=== PATIENT | female | born 1985 | race Caucasian/White ===

== ENCOUNTER 2020-06-28 08:12 | Emergency (ER) | payer BC, SELFPAY ==
--- NOTE | ~2020-06-28 | CT_ITS ---
EXAMINATION: CT abdomen pelvis wo con DATE: 06/28/2020 09:36 INDICATION: Flank pain TECHNIQUE: Computed tomography (CT) of the abdomen and pelvis was performed without intravenous contr ast. The dose-length product (DLP) was 580.63 mGy-cm. Automated exposure control and iterative recons truction technique were employed. COMPARISON: 01/26/2017 FINDINGS: Minimal dependent atelectasis is present in the lung bases. The heart size is normal. The l iver, spleen, pancreas, gallbladder, and adrenal glands are normal. The left kidney is unremarkable. There is a 3 mm stone in the right proximal ureter which causes mild hydronephrosis. A 4 mm nonobstru cting stone is present in the right kidney lower pole. No stones are identified in the left ureter or the bladder. The appendix is normal. No pathologically enlarged abdominal or pelvic lymph nodes are identified. There is no free intraperitoneal gas or evidence of bowel obstruction. There is a small f at-containing umbilical hernia. IMPRESSION: 1. 3 mm stone of the right proximal ureter causing mild hydronephrosis. Consider KUB for treatment pl anning purposes. 2. Nonobstructing right nephrolithiasis. Reviewed, dictated and finalized at location A. AUR[facility] BARTENDER IMPRESSION: 1. 3 mm stone of the right proximal ureter causing mild hydronephrosis. Conside r KUB for treatment planning purposes. 2. Nonobstructing right nephrolithiasis.
[2020-06-28 08:24] VITALS: BP 135/87; PULSE 84; RESP 18; TEMP 36.2; O2SAT 96
[2020-06-28 08:35] LABS: Basophils Percent Auto 0.7 % (0.2-1.2); Eosinophils Absolute Auto 0.3 K/mm3 (0-0.3); Eosinophils Percent Auto 4.9 % (0-4.4); Hemoglobin 14.7 g/dL (12.0-15.0); Immature Granulocyte Absolute 0.02 K/mm3 (0.00-0.031); Immature Granulocyte Percent A 0.3 % (0-0.5); Lymphocytes Absolute Auto 1.11 K/mm3 (0.9-3.2); Lymphocytes Percent Auto 19.4 % (18.3-44.2); Mean Corpuscular HGB Conc 34.2 g/dl (32-36); Mean Corpuscular Hemoglobin 30.9 pg (26-34); Mean Corpuscular Volume 90.3 fl (80-100); Mean Platelet Volume 9.5 fl (7.4-10.4); Monocytes Absolute Auto 0.6 K/mm3 (0.1-0.6); Monocytes Percent Auto 10.3 % (2.6-8.5); Neutrophils Absolute Auto 3.7 K/mm3 (1.3-6.7); Neutrophils Percent Auto 64.4 % (45.5-73.1); Platelet Count Result 293 k/mm3 (150-375); Red Blood Count 4.76 M/mm3 (4.2-5.4); Red Cell Distribution Width 12.6 % (11.5-14.5); White Blood Count 5.7 K/mm3 (4.5-10.0)
[2020-06-28 08:42] LABS: Add Urine Microscopic? YES; Appearance Urine Cloudy (Clear); Bacteria Urine 3+ /hpf; Bilirubin Urine Negative (Negative); Blood Urine 3+ (Negative); Color Urine Yellow (Yellow); Glucose Urine UA Negative (Negative); Ketones Urine Negative (Negative); Leukocyte Esterase Ur Negative LEU/UL (Negative); Mucus Urine Moderate /lpf; Nitrate Urine Negative (Negative); Protein Urine 1+ mg/dL (Negative); RBC Urine >75 /hpf (0-2); Specific Grav Ur 1.025 (1.001-1.035); Squamous Epithelial Cell Urine Many /hpf (Few); Urobilinogen Urine Negative mg/dL (<2.0)
[2020-06-28 08:47] LABS: Anion Gap 6 mmol/L (8-16); Blood Urea Nitrogen 13 mg/dL (7-17); Calcium 9.2 mg/dL (8.4-10.2); Carbon Dioxide 26 mmol/L (22-30); Chloride 106 mmol/L (98-107); Estimated CRCL calculation 83 ml/min; Estimated Glomerular Filt Rate > 60; Glucose 106 mg/dL (65-105); Potassium 4.1 mmol/L (3.4-5.0); Sodium 138 mmol/L (137-145)
[2020-06-28] MEDS: HYDROmorphone HCL INJ (*CRX) 1 MG/ML SYR IV PUSH (09:14)
[2020-06-28] MEDS: ONDANSETRON INJ 4 MG/2 ML VIAL IV PUSH (09:14)
[2020-06-28] MEDS: SODIUM CHLORIDE 0.9% IV 1,000 ML 999 ML IV CONT (09:15)
[2020-06-28 09:44] VITALS: TEMP 36.2
[2020-06-28] MEDS: KETOROLAC 30 MG/ML VIAL (*BKC) IV PUSH (09:54)
[2020-06-28 10:24] VITALS: TEMP 36.2
[2020-06-28 10:41] VITALS: BP 112/75; PULSE 54; RESP 18; O2SAT 96
--- NOTE | 2020-06-28 11:08 | ED.GENADULT ---
HPI - General Adult General Chief complaint: Back Pain/Injury Stated complaint: R FLANK PAIN, HX STONES Time Seen by Provider: 06/28/20 08:33 Source: patient and family Mode of arrival: ambulatory Limitations: no limitations History of Present Illness HPI narrative: 35-year-old with a history of kidney stones here with complaints of sudden onset of right flank pain started early hours, pain got intense associated with nausea and vomiting. She denies any fever or chills no history of trauma. Denies any blood in the urine. Onset (ago): hour(s) (4) Location: back (Right flank) Radiation: abdomen Severity: severe Severity scale (1-10): 8 Quality: stabbing Pain Consistency: constant Relieving factors: none Exacerbating factors: none Associated symptoms: denies other symptoms Related Data Home Medications Medication Instructions Recorded Confirmed cetirizine [Zyrtec] mg 06/28/20 cholecalciferol (vitamin D3) 06/28/20 cranberry 06/28/20 omeprazole 06/28/20 Allergies Allergy/AdvReac Type Severity Reaction Status Date / Time Penicillins Allergy Unknown Rash Verified 06/28/20 08:35 Review of Systems Review of Systems: All systems reviewed & are unremarkable except as noted in HPI and below Constitutional: Constitutional: Reports no additional constitutional complaints Eyes: Eyes: Reports no additional eye complaints ENT: Reports system reviewed and no additional complaints, except as documented Cardiovascular: Cardiovascular: Reports no additional cardiovascular complaints Respiratory: Respiratory: Reports no additional respiratory complaints Gastrointestinal: Gastrointestinal: Reports as per HPI Musculoskeletal: Musculoskeletal: Reports no additional musculoskeletal complaints Neurologic: Reports system reviewed and no additional complaints, except as documented PMFSH Social History Social History Gender identity (if verbalized by the patient): Female Exam Narrative: Exam Narrative: GENERAL: Well-appearing, well-nourished, and in moderate distresssec to pain ,actively vomiting HEAD: Normocephalic, atraumatic. EYES: PERRLA and EOM NECK: Supple. CHEST: Clear to auscultation. No respiratory distress. HEART: Regular rate and rhythm. No murmur heard. Normal peripheral pulses. ABDOMEN: Soft, nontender, nondistended, normal active bowel sounds.No CVA tenderness EXTREMITIES: Normal range of motion. No edema. SKIN: Warm, dry, no rash. NEURO: No focal deficits. Alert and oriented x3. PSYCH: Normal mood and affect. Course Course Emergency Course: With a history of kidney stones do CBC chemistry and a CT of the abdomen. Meanwhile I will give IV Dilaudid for pain and Zofran for nausea and hydrate. Vital Signs Vital signs: Vital Signs Temperature 36.2 C L 06/28/20 08:24 Pulse Rate 84 06/28/20 08:24 Respiratory Rate 18 06/28/20 08:24 Blood Pressure 135/87 06/28/20 08:24 Pulse Oximetry 96 06/28/20 08:24 Temperature 36.2 C L 06/28/20 10:24 Pulse Rate 54 L 06/28/20 10:41 Respiratory Rate 18 06/28/20 10:41 Blood Pressure 112/75 06/28/20 10:41 Pulse Oximetry 96 06/28/20 10:41 Medical Decision Making Vital Signs Vital Signs: Vital Signs Temperature 36.2 C L 06/28/20 08:24 Pulse Rate 84 06/28/20 08:24 Respiratory Rate 18 06/28/20 08:24 Blood Pressure 135/87 06/28/20 08:24 Pulse Oximetry 96 06/28/20 08:24 Temperature 36.2 C L 06/28/20 10:24 Pulse Rate 54 L 06/28/20 10:41 Respiratory Rate 18 06/28/20 10:41 Blood Pressure 112/75 06/28/20 10:41 Pulse Oximetry 96 06/28/20 10:41 Lab Data Result diagrams: 06/28/20 08:27 06/28/20 08:27 Labs: Lab Results 06/28/20 06/28/20 06/28/20 Range/Units 08:27 08:27 08:27 WBC 5.7 (4.5-10.0) K/mm3 RBC 4.76 (4.2-5.4) M/mm3 Hgb 14.7 (12.0-15.0) g/dL Hct 43.0 (37.0-47.0) % MCV 90.3 (80
[2020-06-28 11:17] VITALS: BP 116/69; PULSE 56; RESP 18; O2SAT 98
== END 2020-06-28 11:19 | disposition home or self-care (01) ==
PROVIDERS: Emergency Provider Family Medicine; PCP Family Medicine
DX: N13.2 Hydronephrosis with renal and ureteral calculous obstruction (principal); N39.0 Urinary tract infection, site not specified; Z87.442 Personal history of urinary calculi
CPT/HCPCS: 36415; 74176; 80048; 81001; 81025; 85025; 96361; 96374; 96375; 99284; J1170; J1885; J2405; J7030

== ENCOUNTER 2021-10-14 10:40 | Emergency (ER) | payer BC, SELFPAY ==
--- NOTE | ~2021-10-14 | CT_ITS ---
EXAMINATION: CT abdomen pelvis wo con DATE: 10/14/2021 12:10 INDICATION: Right flank pain TECHNIQUE: Computed tomography (CT) of the abdomen and pelvis was performed without intravenous contr ast. Automated exposure control and iterative reconstruction technique were employed. Exam dose: 297 .31 mGy-cm total exam DLP. COMPARISON: 06/28/[address] abdomen pelvis FINDINGS: There is patchy groundglass density in the lower lung zones which may indicate bilateral pu lmonary infiltrate or small airways disease. Normal heart size. No pericardial or pleural effusion. The liver, gallbladder, bile ducts, pancreas, pancreatic duct, spleen and adrenal glands are unremark able. 4.6 x 6.5 mm right proximal ureteral calculus with moderate right hydronephrosis. No other urinary tract calculus. No left hydroureteronephrosis. The urinary bladder, uterus and adnex al areas are unremarkable. Normal caliber of the abdominal aorta. No intraperitoneal or retroperitoneal or pelvic mass lesion or adenopathy or ascites. Normal appendix. No bowel obstruction, bowel wall thickening, pneumatosis or intraperitoneal free air. Included skeletal structures are unremarkable. IMPRESSION: 4.6 x 6.5 mm obstructing proximal right ureteral calculus with moderate right hydronephr osis Normal appendix Reviewed, dictated and finalized at [facility]. Reviewed, dictated and finalized at location B. IMPRESSION: 4.6 x 6.5 mm obstructing proximal right ureteral calculus with mod erate right hydronephrosis Normal appendix
--- NOTE | ~2021-10-14 | XR_ITS ---
EXAMINATION: XR abdomen/kub 1V INDICATION: Right flank pain TECHNIQUE: Supine views of the abdomen were obtained on 2 radiographs. COMPARISON: CT from today FINDINGS: There is a 5 mm stone at the right ureteropelvic junction projecting between the right L1 a nd L2 transverse processes. No additional urolithiasis is identified. The bowel gas pattern is normal . IMPRESSION: 1. 5 mm right ureteropelvic junction stone. Reviewed, dictated and finalized at location A.
[2021-10-14 10:44] VITALS: BP 132/73; PULSE 80; RESP 16; TEMP 36.1; O2SAT 96
[2021-10-14 11:05] LABS: Basophils Absolute Auto 0.1 K/mm3 (0.0-0.1); Basophils Percent Auto 0.5 % (0.2-1.2); Eosinophils Absolute Auto 0.1 K/mm3 (0-0.3); Hematocrit 42.6 % (37.0-47.0); Hemoglobin 13.9 g/dL (12.0-15.0); Immature Granulocyte Absolute 0.05 K/mm3 (0.00-0.031); Immature Granulocyte Percent A 0.4 % (0-0.5); Lymphocytes Absolute Auto 1.64 K/mm3 (0.9-3.2); Lymphocytes Percent Auto 13.5 % (18.3-44.2); Mean Corpuscular HGB Conc 32.6 g/dl (32-36); Mean Corpuscular Hemoglobin 30.3 pg (26-34); Mean Platelet Volume 9.6 fl (7.4-10.4); Monocytes Absolute Auto 0.5 K/mm3 (0.1-0.6); Monocytes Percent Auto 4.2 % (2.6-8.5); Neutrophils Absolute Auto 9.8 K/mm3 (1.3-6.7); Neutrophils Percent Auto 80.4 % (45.5-73.1); Platelet Count Result 287 k/mm3 (150-375); Red Blood Count 4.58 M/mm3 (4.2-5.4); Red Cell Distribution Width 12.9 % (11.5-14.5); White Blood Count 12.1 K/mm3 (4.5-10.0)
[2021-10-14 11:16] LABS: Alanine Aminotransferase 47 U/L (6-35); Albumin Level 4.6 g/dL (3.5-5.1); Alkaline Phosphatase 77 U/L (38-126); Anion Gap 9 mmol/L (8-16); Aspartate Amino Transferase 46 U/L (14-36); Bilirubin,Total 0.4 mg/dL (0.2-1.3); Blood Urea Nitrogen 15 mg/dL (7-17); Calcium 9.1 mg/dL (8.4-10.2); Carbon Dioxide 23 mmol/L (22-30); Chloride 104 mmol/L (98-107); Estimated CRCL calculation 84 ml/min; Estimated Glomerular Filt Rate > 60; Glucose 116 mg/dL (65-110); Potassium 3.9 mmol/L (3.4-5.0); Sodium 136 mmol/L (137-145)
[2021-10-14 11:18] LABS: Appearance Urine Cloudy (Clear); Bilirubin Urine 1+ (Negative); Blood Urine 2+ (Negative); Color Urine Yellow (Yellow); Glucose Urine UA Trace mg/dL (Negative); Ketones Urine Negative (Negative); Leukocyte Esterase Ur Negative LEU/UL (Negative); Nitrate Urine Negative (Negative); Protein Urine 1+ mg/dL (Negative); Specific Grav Ur >= 1.030 (1.001-1.035); Urobilinogen Urine 0.2 mg/dL (<2.0); pH Urine 5.5 (5.0-9.0)
[2021-10-14 11:28] LABS: Amorphous Sediment Urine Few; Bacteria Urine 2+ /hpf; Mucus Urine Heavy /lpf; RBC Urine 51-75 /hpf (0-2); Squamous Epithelial Cell Urine Many /hpf (Few); WBC Urine 51-75 /hpf
[2021-10-14 11:29] LABS: Add Urine Microscopic? YES
--- NOTE | 2021-10-14 11:50 | ED.BACK ---
HPI - Back Pain/Injury General Chief Complaint: Back Pain/Injury Stated Complaint: R. flank pain Time Seen by Provider: 10/14/21 10:56 Source: patient Mode of arrival: ambulatory Limitations: no limitations History of Present Illness HPI Narrative: 36 y/o female presents to the ER today for right flank pain that started 2 days ago. She has nausea and vomiting with it. She has a history of kidney stones and says that she feels like this is another stone. She has had multiple stones in the past. The last one was about a year ago. She has not had any fever or chills. No diarrhea. She has had some dysuria today. She says that today the pain feels like it is starting to wrap around the right abdomen. She has always passed the stones on her own. She was going to have lithotripsy once but she ended up toughing it out and passing it on her own. Related Data Home Medications Medication Instructions Recorded Confirmed cetirizine [Zyrtec] mg 06/28/20 cholecalciferol (vitamin D3) 06/28/20 cranberry 06/28/20 omeprazole 06/28/20 Allergies Allergy/AdvReac Type Severity Reaction Status Date / Time Penicillins Allergy Unknown Seizure Verified 10/14/21 11:03 Review of Systems Constitutional: Constitutional: Denies chills, Denies fatigue, Denies fever(s) and Denies weakness Eyes: Eyes: Reports no additional eye complaints ENT: Denies dysphagia, Denies dizziness, Denies epistaxis, Denies nasal congestion and Denies sore throat Cardiovascular: Cardiovascular: Denies chest pain Respiratory: Respiratory: Denies chest congestion, Denies cough, Denies dyspnea and Denies wheezing Gastrointestinal: Gastrointestinal: Reports abdominal pain, Denies diarrhea, Reports nausea and Reports vomiting Genitourinary: Genitourinary: Denies hematuria, Reports dysuria and Reports flank pain Musculoskeletal: Musculoskeletal: Denies myalgias and Denies arthralgias Integumentary/Breasts: Skin/Breast: Denies rash Neurologic: Denies headache(s) Psychiatric: Psychiatric: Denies anxiety and Denies depression Endocrine: Endocrine: Denies fatigue Hematologic/Lymphatic: Hematologic/Lymphatic: Reports no additional hematologic/lymphatic complaints Allergic/Immunologic: Allergic/Immunologic: Reports no additional allergic/immunologic complaints PMFSH Past Medical History Medical History Kidney stone Social History Social History Gender identity (if verbalized by the patient): Female Exam Const: General: healthy appearing, no acute distress and alert Orientation/consciousness: patient oriented x3 HENMT: Head: normal to inspection Eyes: Conjunctivae: conjunctivae normal Neck: Neck: normal visual inspection Chest: Chest palpation & inspection: normal inspection of the chest Resp: Effort & Inspection: normal respiratory effort Cardio: Rate: regular rate Rhythm: regular rhythm GI: GI Palp: Yes Soft to palpation and No Guarding due to palpation present (GI) Auscultation: normal bowel sounds : General: Yes no CVA tenderness Back/Spine/Pelvis: Back: CVA tenderness (right) Skin: General skin exam: normal color Rashes: no rashes Neuro: General: patient oriented x3 and moves all extremities Extrem: General: normal to inspection and no edema Psych: Mental Status: mental status grossly normal Affect: normal affect Attitude: cooperative Course Course Emergency Course: 1400 Discussed with ANDRAE Garcia with urology. She is finishing up in clinic and she will come to see the patient to discuss options for management. She would like patient to have KUB. 1530 Urology has stopped by to see patient. Pt does not want to have stent placed and would like to be discharged home with pain med and nausea med. She will follow up with urology outpatient for possible lithotripsy in a week. Vital Signs Vital signs: Vital Si
[2021-10-14] MEDS: SODIUM CHLORIDE 0.9% IV 1,000 ML 999 ML IV CONT (12:00)
[2021-10-14] MEDS: KETOROLAC 30 MG/ML VIAL (*BKC) IV PUSH (12:01)
[2021-10-14] MEDS: ONDANSETRON INJ 4 MG/2 ML VIAL IV PUSH (12:01)
[2021-10-14] MEDS: PROMETHAZINE HCL 25 MG/ML AMPUL 12.5 MG IV PUSH (13:09)
[2021-10-14] MEDS: MORPHINE SULFATE (*CRX) 2 MG/ML INJ IV PUSH (14:40)
[2021-10-14 14:43] VITALS: BP 115/49; PULSE 57; RESP 18; O2SAT 99
--- NOTE | 2021-10-14 15:53 | WPDURCON ---
Assessment and Plan Assessment and plan (1) UTI (urinary tract infection): Qualifiers: Hematuria presence: with hematuria Urinary tract infection type: acute cystitis Qualified Code(s): N30.01 - Acute cystitis with hematuria Code(s): N39.0 - Urinary tract infection, site not specified Status: Acute Assessment and Plan: Plan to start patient on Bactrim DS BID x 7 days, will tailor to culture results. URine culture is pending. (2) Ureteral obstruction, right: Code(s): N13.5 - Crossing vessel and stricture of ureter without hydronephrosis Status: Acute Assessment and Plan: KUB shows right UPJ stone, we discussed doing a stent today followed by a lithotripsy next week d/t receiving Torodol today, or discharging home with oral narcotics, Phenergan and antibiotics then doing just the lithotripsy next week. She agrees to go home today with narcotics, Phenergan and Bactrim, then f/u next week for outpatient lithotripsy on TuesdayOctober 23 at [place]. We will call her to schedule the procedure and she can call if any changes or concerns occur. She is aware she will need to avoid NSAID's until her procedure. Ok to discharge home. Urology Consult Note HPI Date Seen: 10/14/21 Primary Care Provider: [facility] PHYSICIAN Consult Narrative Narrative: Joanie Bryant is a 36 year old female who presented to the ER today with acute onset of right flank pain that radiates to the RLQ, accompanied by nausea and vomiting. She denies hematuria or fever. She also states her urine is cloudy with sediment and she has dysuria after urinating. Her symptoms began last night and progressively worsened. She has a history of kidney stones and was seen by Dr. Kennedy in 2017, but has passed all of her stones and has not had to have a ureteroscopy or lithotripsy thus far. She denies a history of a chronic UTI. She is afebrile at this time and has a slightly elevated WBC of 12.1, UA is suspicious for a UTI, urine culture is pending. CT shows a 4.5x 6.5mm stone in the proximal right ureter and mild right hydronephrosis. She has no other stones visible. KUB shows her stone in the right UPJ. Review of Systems Cardiovascular: Cardiovascular: Denies chest pain Respiratory: Respiratory: Reports no additional respiratory complaints Gastrointestinal: Gastrointestinal: Reports abdominal pain, Reports nausea and Reports vomiting Genitourinary: Genitourinary: Denies hematuria, Denies nocturia, Reports dysuria, Reports flank pain, Denies urinary incontinence, Denies urinary hesitancy and Denies urinary urgency PMF Past Medical History Medical History Kidney stone Social History Social History Gender identity (if verbalized by the patient): Female Meds Home Medications and Allergies Home Medications Medication Instructions Recorded Confirmed Type cetirizine [Zyrtec] mg 06/28/20 History cholecalciferol (vitamin D3) 06/28/20 History ciprofloxacin HCl [Cipro] 500 mg PO Q12H #10 tablet 06/28/20 Rx cranberry 06/28/20 History hydrocodone-acetaminophen [[place]] 1 tablet PO Q6H PRN #14 tablet 06/28/20 Rx omeprazole 06/28/20 History ondansetron HCl [Zofran] 4 mg PO Q8H PRN #10 tablet 06/28/20 Rx tamsulosin [Flomax] 0.4 mg PO HS #7 cap 06/28/20 Rx hydrocodone-acetaminophen 1 tablet PO Q4H PRN #20 tablet 10/14/21 Rx promethazine 25 mg PO Q6H PRN #14 tablet 10/14/21 Rx sulfamethoxazole-trimethoprim 1 tablet PO Q12H 7 Days #14 tablet 10/14/21 Rx [Bactrim DS] tamsulosin [Flomax] 0.4 mg PO DAILY #14 cap 10/14/21 Rx Allergies Allergy/AdvReac Type Severity Reaction Status Date / Time Penicillins Allergy Unknown Seizure Verified 10/14/21 11:03 Vital Signs Vital Signs - 24 hr 10/14/21 10:44 10/14/21 14:43 Temperature 96.9 F L Pulse Rate 80 57 L Respiratory Rate 16 18 Blood Pressu
== END 2021-10-14 16:06 | disposition home or self-care (01) ==
PROVIDERS: Emergency Medicine; Emergency Provider Nurse Practitioner Family
DX: N30.01 Acute cystitis with hematuria (principal); N13.1 Hydronephrosis with ureteral stricture, not elsewhere classified; N20.1 Calculus of ureter; Z87.442 Personal history of urinary calculi
CPT/HCPCS: 36415; 74018; 74176; 80053; 81001; 81025; 85025; 87086; 96361; 96365; 96375; 99284; J0696; J1885; J2270; J2405; J2550; J7030

== ENCOUNTER 2021-10-19 15:24 | Outpatient (CLI) | payer BC, SELFPAY ==
[2021-10-19 15:46] LABS: Partial Thromboplastin Time 26.9 SECONDS (22.3-36.8); Prothrombin Time 12.7 Seconds (11.1-14.7)
== END 2021-10-19 15:25 | disposition home or self-care (01) ==
LOC: ANHLAB 15:25
PROVIDERS: Visit Provider Urology
DX: N20.1 Calculus of ureter (principal)
CPT/HCPCS: 36415; 85610; 85730

== ENCOUNTER 2021-10-23 01:16 | Day surgery (SDC) | payer BC, SELFPAY ==
[2021-10-19 14:36] VITALS: BMI 28.3
--- NOTE | 2021-10-19 15:09 | PC.NURSE ---
Report to the Outpatient Waiting Room, entrance under the green pavilion located off [facility], at 1130 on 10-23-21. OR Time: 1330. - You and your visitor will be asked a series of questions to screen for COVID 19 for your protection. - Only one visitor is allowed at this time. - The patient visitor is requested to leave or wait in car when not with patient. - A mask is required within the hospital. Patients may have clear liquids (water, carbonated beverages, clear teas, apple juice) until 3 hours prior to surgery with a maximum of 20 ounces. 1030 - No food from midnight until time of surgery - Infants may have breast milk until 4 hours before surgery, infant formula 6 hours prior to surgery. - Children will be allowed to drink immediately following surgery. If applicable, please bring a bottle or sippy cup to assist with drinking. Juice, water, soda, and popsicles are readily available. For infants on formula, please bring formula the day of surgery. Pacifiers are allowed. Take the following medications with a SIP of water the morning of surgery: Flomax, [place], Bactrim, promethazine (all if needed) Medications to discontinue per physician: N/A Please no make-up, nail luxembourgish, hairspray, perfume, deodorant, or body powder the day of surgery. No jewelry (including any body piercings) or valuables the day of surgery, leave them at home. Please take a shower or bath the night before, or the morning of, surgery with an antibacterial soap. Wear comfortable, loose fitting clothing. Children are encouraged to wear pajamas. - Jewelry must be removed prior to entering the operating room. Rings and piercings that are not removed may be cut off. - The hospital will not accept responsibility for valuables. - Please leave all valuables, including medications, at home the day of surgery. If you are going home after surgery, a licensed personal driver must drive you home. - NO public transportation without another adult. - We recommend that an adult stay with you for 24 hours following discharge. - We also recommend that you do not drive, make important decision, drink alcoholic beverages, or take any drugs that were not prescribed by your health care provider for at least 24 hours after your discharge time. For Pediatric surgeries, we recommend two adults accompany the child home (only one inside the building at this time). Follow any additional instructions given to you from your surgeon. If you or anyone in your household have experienced Covid symptoms in the past week, please notify your surgeon or the nurse liaison at the phone number below for possible testing. Telephone instructions given to Joanie Parker and asked if any additional questions and then verbalized understanding. Patient advised to call surgeon office or pre surgery nurse liaison [phone] if any additional questions.
--- NOTE | 2021-10-22 13:40 | WPDANESEPPF ---
Anes - Initial Pre Proc Eval Procedure: Operation Date: 10/23/21 09:30 Proposed Procedures p Right Extracorporeal Shock Wave Lithotripsy - Abel Leavitt MD Date/Time: 10/22/21 13:40 Surgeon: Abel Leavitt MD Pre Op Diagnosis: Rt Ureteral Stone Patient Data Age: 36 Gender: F Height: 1.63 m Weight: 74.84 kg Allergies Allergy/AdvReac Type Severity Reaction Status Date / Time Penicillins Allergy Severe Seizure Verified 10/19/21 14:23 clindamycin Allergy Intermediate Rash Verified 10/19/21 14:23 strawberry Allergy Intermediate Rash Verified 10/22/21 13:43 Home Medications Medication Instructions Recorded Confirmed Type cetirizine [Zyrtec] 10 mg PO DAILY PRN 06/28/20 10/19/21 History hydrocodone-acetaminophen 1 tablet PO Q4H PRN #20 tablet 10/14/21 10/19/21 Rx promethazine 25 mg PO Q6H PRN #14 tablet 10/14/21 10/19/21 Rx sulfamethoxazole-trimethoprim 1 tablet PO Q12H 7 Days #14 tablet 10/14/21 10/19/21 Rx [Bactrim DS] tamsulosin [Flomax] 0.4 mg PO DAILY #14 cap 10/14/21 10/19/21 Rx omeprazole 20 mg PO DAILY 10/19/21 10/19/21 History Patient hx anesthesia problems: none Family hx anesthesia problems: none Results Review: All pre-operative results and documents have been reviewed as part of the pre-operative evaluation. [facility] Past Medical History Medical History Chronic GERD Kidney stone Seizure Social History Social History Second hand tobacco smoke exposure: No Alcohol intake: current Drinks per week: 1 Substance use: never Substance use type: does not use Living arrangements: with family Gender identity (if verbalized by the patient): Female Spiritual care concerns: No Anes - Eval Final PreProcedure Day of Procedure 10/22/21 13:40 Patient weight: overweight Heart: regular rate and rhythm Lungs: clear to auscultation and normal air movement Airway: Mallampati scale class II Neurological: alert and oriented Last oral intake: >/= 8 hours ASA classification: II Emergent: no Anesthetic plan: proceed Anesthesia type and monitoring: general LMA Results Review: All pre-operative results and documents have been reviewed as part of the pre-operative evaluation. Informed Consent: The patient's anesthetic plan and its attendant risks and benefits were discussed with the patient/family/POA. Questions were solicited and answers provided to the satisfaction of the patient/family/POA.
[2021-10-23] VITALS (7 sets, daily range): BP systolic 107–133; BP diastolic 60–79; PULSE 54–81; RESP 12–16; TEMP 36.2; O2SAT 95–100
--- NOTE | ~2021-10-23 | XR_ITS ---
XR abdomen/kub 1V 10/23/2021 07:50 Indication: Preop ESWL Procedure: KUB Comparison: 10/14/2021 Findings: There is a stone in the right upper abdomen, most likely at the right UPJ measuring approxi mately 5 mm. Bowel gas pattern is nonobstructive. No acute osseous abnormality. Lung bases unremarkab le. Impression: 1: Right UPJ stone measuring 5 mm. Reviewed, dictated and finalized at location D. Impression: 1: Right UPJ stone measuring 5 mm.
--- NOTE | 2021-10-23 06:54 | PM.HPGS ---
History of Present Illness History of Present Illness Consent: Risks, benefits, and alternatives have been discussed and questions answered. Patient agrees to proceed with procedure. Chief complaint: Rt Ureteral Stone Narrative: Joanie Bryant is a 36 year old female who has spontaneously passed ureteral stones in the remote past. She was in the ER a few days ago with a painful obstructing 5 mm right proximal ureteral stone. She does some nausea but no vomiting. She denied fever chills or gross hematuria. After discussion of options she elected for outpatient ESWL. She is aware the risk including, but not limited to, adverse cardiopulmonary events, perinephric hematoma, renal injury, fragments of will cause pain passing. Review of Systems Cardiovascular: Cardiovascular: Denies chest pain, Denies lightheadedness, Denies palpitations and Denies dyspnea Respiratory: Respiratory: Denies dyspnea Gastrointestinal: Gastrointestinal: Denies diarrhea, Denies nausea and Denies vomiting Genitourinary: Genitourinary: Denies hematuria and Denies dysuria Endocrine: Endocrine: Denies palpitations COUNTS INCLUDE 234 BEDS AT THE [facility] Past Medical History Medical History Chronic GERD Kidney stone Seizure Social History Social History Second hand tobacco smoke exposure: No Alcohol intake: current Drinks per week: 1 Substance use: never Substance use type: does not use Living arrangements: with family Gender identity (if verbalized by the patient): Female Spiritual care concerns: No Meds Home Medications and Allergies Home Medications Medication Instructions Recorded Confirmed Type cetirizine [Zyrtec] 10 mg PO DAILY PRN 06/28/20 10/19/21 History hydrocodone-acetaminophen 1 tablet PO Q4H PRN #20 tablet 10/14/21 10/19/21 Rx promethazine 25 mg PO Q6H PRN #14 tablet 10/14/21 10/19/21 Rx sulfamethoxazole-trimethoprim 1 tablet PO Q12H 7 Days #14 tablet 10/14/21 10/19/21 Rx [Bactrim DS] tamsulosin [Flomax] 0.4 mg PO DAILY #14 cap 10/14/21 10/19/21 Rx omeprazole 20 mg PO DAILY 10/19/21 10/19/21 History Allergies Allergy/AdvReac Type Severity Reaction Status Date / Time Penicillins Allergy Severe Seizure Verified 10/19/21 14:23 clindamycin Allergy Intermediate Rash Verified 10/19/21 14:23 strawberry Allergy Intermediate Rash Verified 10/22/21 13:43 Exam Const: General: no acute distress Resp: Effort & Inspection: normal respiratory effort GI: Inspection: non-distended GI Palp: No abdominal tenderness and No Guarding due to palpation present (GI) Auscultation: normal bowel sounds Assessment and Plan Assessment and plan (1) Obstruction of right ureteropelvic junction (UPJ) due to stone: Code(s): N20.1 - Calculus of ureter Status: Acute Assessment and Plan: Right ESWL
--- NOTE | 2021-10-23 06:56 | WPDHPUPDATE1 ---
History and Physical Update Update Date/Time: 10/23/21 06:56 History and Physical has been reviewed, including an updated exam of the patient. There are NO changes in the patient's condition. Risks, benefits, and alternatives have been discussed and questions answered. Patient agrees to proceed with procedure.
[2021-10-23] MEDS: LACTATED RINGERS 1,000 ML 30 ML IV CONT (08:14)
[2021-10-23] MEDS: ceFAZolin 2 GM/D5W 50 ML 2 GM/50 ML BAG IVPB (09:13)
--- NOTE | 2021-10-23 09:35 | W.PM.PROC2 ---
Procedure Note - Detailed Date of Procedure 10/23/21 Pre-op Diagnosis Rt Ureteral Stone Post-op Diagnosis Same Procedure Performed Right ESWL Surgeon Abel Leavitt MD Anesthesia General Description of Procedure The patient was brought to the operative suite where she was placed in the supine position on the Dornier lithotripsy table. The focal point of the lithotripter was placed at a 5mm right UPJ/proximal ureteal calculus. A total of 2500 shocks were delivered at a power setting of 4. There appeared to be good fragmentation of the stone. The patient tolerated the procedure well and was taken to the recovery room in good condition. Estimated Blood Loss 0 Drains No Packing No Pathology None sent Complications No immediate complications Condition Stable Disposition PACU
[2021-10-23] MEDS: fentaNYL CITRATE INJ (*CRX) 100 MCG/2 ML VIAL 25 MCG IV PUSH ×2 (10:29→10:33)
[2021-10-23] MEDS: oxyCODONE HCL (*CRX) 5 MG TAB IR PO (11:23)
== END 2021-10-23 11:35 | disposition home or self-care (01) ==
PROVIDERS: Visit Provider Urology
PROC: (CPT 50590; principal; 2021-10-23 09:30)
DX: N20.1 Calculus of ureter (principal); K21.9 Gastro-esophageal reflux disease without esophagitis
CPT/HCPCS: 50590; 74018; A9270; J0690; J2250; J2405; J2704; J3010; J7120

== ENCOUNTER 2021-11-06 14:30 | Outpatient (CLI) | payer BC, SELFPAY ==
--- NOTE | ~2021-11-06 | XR_ITS ---
EXAMINATION: XR abdomen/kub 1V INDICATION: Right ureteral stone TECHNIQUE: Supine views of the abdomen were obtained on 2 radiographs. COMPARISON: 10/23/2021 FINDINGS: The previously described right ureteropelvic junction stone is no longer evident, consisten t with interval lithotripsy. No stone fragments are identified along the expected course of the right ureter. No urolithiasis is identified. The bowel gas pattern is normal. IMPRESSION: 1. No urolithiasis identified, consistent with interval treatment of the previously described right u reteropelvic junction stone. Reviewed, dictated and finalized at location F. IMPRESSION: 1. No urolithiasis identified, consistent with interval treatment of the previo usly described right ureteropelvic junction stone.
== END 2021-11-06 14:31 | disposition home or self-care (01) ==
LOC: ANHIMG 14:34
PROVIDERS: Visit Provider Urology
DX: N20.1 Calculus of ureter (principal)
CPT/HCPCS: 74018

== ENCOUNTER 2022-03-01 17:26 | Emergency (ER) | payer BC, SELFPAY ==
--- NOTE | ~2022-03-01 | XR_ITS ---
EXAMINATION: XR wrist LT min 3V DATE: 03/01/2022 18:10 INDICATION: Left wrist hyperextension injury with left wrist pain TECHNIQUE: Posteroanterior, ulnar deviation, oblique, and lateral views of the left wrist were obtain ed. COMPARISON: none FINDINGS: Alignment is normal. No fracture. Joint spaces are normal. Soft tissue swelling suggested along the d orsal and radial aspects of the distal left forearm. IMPRESSION: 1. No osseous abnormality. Reviewed, dictated and finalized at location A. IMPRESSION: 1. No osseous abnormality.
[2022-03-01 18:02] VITALS: BP 139/80; PULSE 57; RESP 16; TEMP 36.7; O2SAT 100
--- NOTE | 2022-03-01 18:49 | ED.UPPEXIN ---
HPI - Extremity Injury (Upper) General Chief Complaint: Extremity Injury, Upper Stated Complaint: Left Wrist Pain Time Seen by Provider: 03/01/22 19:12 Source: patient and RN notes reviewed Mode of arrival: ambulatory Limitations: no limitations History of Present Illness HPI narrative: 36-year-old female presents with concern for left wrist injury. She reports yesterday she was wearing a ball glove, her hand moved awkwardly and she had pain that went from her dorsal wrist into her hand, she heard popping and cracking . She reports she had some swelling to the dorsal wrist which has improved. Reports she wore a brace today at work, however her job caused the pain to be worse MD complaint: injury to: left and wrist Related Data Allergies Allergy/AdvReac Type Severity Reaction Status Date / Time Penicillins Allergy Severe Seizure Verified 03/01/22 17:37 clindamycin Allergy Intermediate Rash Verified 03/01/22 17:37 strawberry Allergy Intermediate Rash Verified 03/01/22 17:37 Review of Systems Review of Systems: CONSTITUTIONAL: Denies malaise, chills, sweats, or fever. SKIN: Denies rash or itching, open skin, laceration, abrasion, redness, warmth, swelling. MUSCULOSKELETAL: Reports left wrist pain NEUROLOGIC: Denies numbness, weakness All systems reviewed & are unremarkable except as noted in HPI and below PMFSH Past Medical History Medical History Chronic GERD Kidney stone Seizure Social History Social History Second hand tobacco smoke exposure: No Alcohol intake: current Drinks per week: 1 Substance use: never Substance use type: does not use Gender identity (if verbalized by the patient): Female Spiritual care concerns: No Comments At time of signature, agree with nursing past medical, surgical, social and family history. There is no relevant family history pertinent to the presenting complaint Exam Narrative: GENERAL: Well-appearing, well-nourished, and in no acute distress. HEAD: Normocephalic EYES: PERRLA, conjunctivae clear NECK: Supple. CHEST: Speaks in full sentences. No respiratory distress. HEART: Regular rate and rhythm. Normal and equal peripheral pulses. EXTREMITIES: Left wrist, hand and digits of hand have normal strength and sensation. 5/5 strength with digit flexion, extension. Range of motion normal. No clubbing, cyanosis, or edema noted. No point tenderness. Skin intact. Normal digital cascade with flexion of fingers, median, ulnar and radial nerve intact. Normal sensation of each side of finger. Can perform 'okay' sign, 'cross over finger test of index and middle fingers' and 'thumbs up' sign. No scissoring. Normal thumb opposition. Good capillary refill and radial pulse. Distal capillary refill less than 3 seconds. Patient is right/left hand dominant SKIN: Warn, dry, intact, pink. No rash NEURO: Alert and oriented x3. PSYCH: Normal mood and affect SKIN: Warm, dry, no rash. NEURO: Alert and oriented x3. PSYCH: Normal mood and affect Course Course Emergency Course: Patient is aware of diagnosis, understands and agrees to treatment plan. Anticipatory guidance given. Patient agrees to follow-up as directed and is aware of reasons to seek care at the emergency department. Portions of this record may have been created with voice recognition software Level of Care: Express Care Visit Vital Signs Vital signs: Vital Signs Temperature 98.1 F 03/01/22 18:02 Pulse Rate 57 L 03/01/22 18:02 Respiratory Rate 16 03/01/22 18:02 Blood Pressure 139/80 03/01/22 18:02 Pulse Oximetry 100 03/01/22 18:02 Oxygen Delivery Room Air 03/01/22 18:02 Temperature 98.1 F 03/01/22 18:02 Pulse Rate 57 L 03/01/22 18:02 Respiratory Rate 16 03/01/22 18:02 Blood Pressure 139/80 03/01/22 18:02 Pulse Oximetry 100 03/01/22 18:02 Oxygen Delivery Room Air 03/01/22 18
== END 2022-03-01 19:25 | disposition home or self-care (01) ==
PROVIDERS: Emergency Provider Nurse Practitioner
DX: S63.502A Unspecified sprain of left wrist, initial encounter (principal); X50.9XXA Other and unspecified overexertion or strenuous movements or postures, initial encounter; K21.9 Gastro-esophageal reflux disease without esophagitis
CPT/HCPCS: 73110; 99213; G0463

== ENCOUNTER 2022-09-06 16:14 | Outpatient (CLI) | payer OTHER, SELFPAY ==
--- NOTE | ~2022-09-06 | XR_ITS ---
EXAMINATION: XR abdomen/kub 1V INDICATION: Right ureteral stone TECHNIQUE: Supine views of the abdomen were obtained on 2 radiographs. COMPARISON: 12/03/2021 FINDINGS: No urolithiasis is identified. The bowel gas pattern is normal. The visualized osseous stru ctures are unremarkable. IMPRESSION: 1. No urolithiasis identified. Reviewed, dictated and finalized at location L.
== END 2022-09-06 16:15 | disposition home or self-care (01) ==
PROVIDERS: Visit Provider Urology
DX: N20.1 Calculus of ureter (principal)
CPT/HCPCS: 74018

== ENCOUNTER 2023-11-28 15:10 | Outpatient (CLI) | payer OTHER, SELFPAY ==
--- NOTE | ~2023-11-28 | XR_ITS ---
EXAMINATION: XR abdomen/kub 1V DATE: 11/28/2023 15:32 INDICATION: Right ureteral stone. Right lateral abdominal pain. TECHNIQUE: A supine view of the abdomen on 2 radiographs was obtained. COMPARISON: Abdomen radiographs 09/06/2022, CT abdomen and pelvis 10/14/2021 FINDINGS: There are no dilated loops of bowel. There is no visible urolithiasis. IMPRESSION: 1. No visible urolithiasis. Reviewed, dictated and finalized at location A. IMPRESSION: 1. No visible urolithiasis.
== END 2023-11-28 15:11 | disposition home or self-care (01) ==
LOC: ANHIMG 15:14
PROVIDERS: PCP Nurse Practitioner Family; Visit Provider Physician Assistant
DX: N20.1 Calculus of ureter (principal)
CPT/HCPCS: 74018